=== PATIENT | male | born 1965 | race Caucasian/White ===

== ENCOUNTER → 2024-01-17 14:45 | Outpatient (REF) | payer OTHER, SELFPAY | LOC: RCS 14:45 | PROVIDERS: ATTENDING PHYSICIAN Internal Medicine Interventional Cardiology; FAMILY PHYSICIAN Family Medicine | DX: I25.118 Atherosclerotic heart disease of native coronary artery with other forms of angina pectoris (principal); I25.10 Atherosclerotic heart disease of native coronary artery without angina pectoris | CPT/HCPCS: 93306 ==

== ENCOUNTER → 2024-04-16 06:33 | Day surgery (SDC) | payer OTHER, SELFPAY | LOC: GI 06:33 | PROVIDERS: ATTENDING PHYSICIAN Internal Medicine | DX: Z12.11 Encounter for screening for malignant neoplasm of colon (principal); R19.5 Other fecal abnormalities; K57.30 Diverticulosis of large intestine without perforation or abscess without bleeding; K55.9 Vascular disorder of intestine, unspecified; K52.89 Other specified noninfective gastroenteritis and colitis | CPT/HCPCS: 45380; 88305 ==

== ENCOUNTER 2025-02-03 11:16 | Emergency (ER) | payer OTHER, SELFPAY ==
[2025-02-03] VITALS (16 sets, daily range): BP systolic 73–149; BP diastolic 51–99; BMI 29.1
[2025-02-03 11:52] LABS: % Basophils 1.4 % (0-2); % Immature Granulocytes 0.4 % (0-0.5); % Lymphocytes 22.5 % (20.5-51.1); % Neutrophils 53.7 % (42.2-75.2); Absolute Basophils 0.1 10^3/uL (0-0.2); Absolute Eosinophils 0.8 10^3/uL (0-0.7); Absolute Lymphocytes 1.6 10^3/uL (1.2-3.4); Absolute Monocytes 0.8 10^3/uL (0.1-0.6); Absolute Neutrophils 3.9 10^3/uL (1.4-6.5); Hematocrit 46.8 % (39.0-52.0); Hemoglobin 16.2 g/dL (13.0-18.0); Mean Corp Hgb Conc. 34.6 g/dL (33.0-37.0); Mean Corpuscular Volume 86.7 fL (80.0-94.0); Mean Platelet Volume 8.9 fL (7.4-10.4); Nucleated Red Blood Cells % 0 % (-); Platelet Count 250 10^3/uL (130-400); White Blood Cell Count 7.3 10^3/uL (4.8-10.8)
[2025-02-03 12:02] LABS: ALT (SGPT) 31 U/L (0-50); AST (SGOT) 25 U/L (17-59); Albumin 4.1 g/dl (3.5-5.0); Alkaline Phosphatase 72 U/L (38-126); Blood Urea Nitrogen 13 mg/dl (9-20); Calcium 9.2 mg/dl (8.4-10.2); Carbon Dioxide 25 mmol/L (22-30); Chloride 109 mmol/L (98-107); Glucose 111 mg/dl (70-99); Potassium 4.5 mmol/L (3.5-5.1); Sodium 140 mmol/L (135-145); Total Bilirubin 0.6 mg/dl (0.2-1.3); Total Protein 7.3 g/dl (6.3-8.2); eGFR > 60.00
[2025-02-03 12:12] LABS: Troponin I 0.017 ng/ml
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
[2025-02-03] MEDS: NSS 500 IV (14:55)
[2025-02-03] MEDS: NITROSTAT (SUBLINGUAL) 0.4 MG SL (14:55)
--- NOTE | 2025-02-03 15:05 | PTCARENOTE ---
Nitrostat given for Chest Pain. Within a few minutes, pt states he feel lightheaded and becomes pale. Pt's head adjust to laying down. BP 73/51. NSS 500ml started. Estela TANG made aware. RN bedside with pt and checking BP's every 5
minutes. Spouse at bedside. Will continue to monitor.
[2025-02-03 15:22] LABS: Troponin I 0.018 ng/ml
== END 2025-02-03 18:16 | disposition home or self-care (01) ==
LOC: EMR 11:16
PROVIDERS: Physician Assistant; EMERGENCY PHYSICIAN Emergency Medicine; FAMILY PHYSICIAN Family Medicine; OTHER PHYSICIAN Internal Medicine Interventional Cardiology
DX: R07.89 Other chest pain (principal); I10 Essential (primary) hypertension; E78.00 Pure hypercholesterolemia, unspecified; I25.10 Atherosclerotic heart disease of native coronary artery without angina pectoris; Z95.1 Presence of aortocoronary bypass graft
CPT/HCPCS: 99285; 96360; 71046; 80053; 84484; 85025; 93005

== ENCOUNTER 2025-05-06 09:11 | Outpatient (RCR) | payer OTHER, SELFPAY | END 2025-05-06 23:59 | disposition home or self-care (01) | LOC: RPT 09:11 | PROVIDERS: ATTENDING PHYSICIAN Physician Assistant | DX: M25.511 Pain in right shoulder (principal); Z73.6 Limitation of activities due to disability; M62.81 Muscle weakness (generalized); G89.29 Other chronic pain | CPT/HCPCS: 97010; 97110; 97112; 97140; 97162 ==